=== PATIENT | male | born 1970 | race African-American/Black ===

== ENCOUNTER 2018-05-30 06:26 | Day surgery (SDC) | payer MEDICARE, OTHER ==
[~2018-05-30 06:26] MED LIST: ATORVASTATIN CA20 MG PO; LISINOPRIL5 MG PO
[2018-05-30 08:45] VITALS: BP 124/72
== END 2018-05-30 09:00 | disposition home or self-care (01) ==
LOC: ENDO 06:26
PROVIDERS: ATTEND Surgery
PROC: 0DJD8ZZ Inspection of Lower Intestinal Tract, Via Natural or Artificial Opening Endoscopic (ICD-10-PCS; principal; 2018-05-30)
DX: Z12.11 Encounter for screening for malignant neoplasm of colon (principal); K64.8 Other hemorrhoids
CPT/HCPCS: G0121